=== PATIENT | female | born 1975 | race Caucasian/White ===

== ENCOUNTER 2017-10-02 17:53 | Emergency (ER) | payer OTHER ==
[~2017-10-02] VITALS: Ht 162.6 cm; Wt 68.0 kg
[~2017-10-02 17:53] MED LIST: ALIGN4 MG PO; AMITRIPTYLINE H25 M2 GT; ATIVAN1 MG PO; BACTRIM DS TAB1 EACH PO; BCP PO; BELLADONNA ALK/1 TA1; BENTYL 20 MG TA20 M1 PO; BENTYL20 MG PO; BIRTH CONTROL; BUSPAR30 MG PO; CELEXA 20 MG TA20 M1 PO; CELEXA20 MG PO; CELEXA40 MG PO; CIPRO500 MG PO; CIPROFLOXACIN500 M1 PO; CITRATE OF MAG296 ML PO; CLONAZEPAM 1 MG1 M1 PO; COLACE 100 MG100 MG PO; COLACE100 MG PO; DARVOCET-N 1001 EACH PO; DESYREL150 MG PO; DIFLUCAN150 MG PO; FLAGYL500 MG PO; HYDROCODON-ACE1 EACH PO; HYDROCODONE-AP1 EAC6 PO; HYDROXYZINE HCL25 M1; HYDROXYZINE HCL25 M1 PO; HYDROXYZINE HCL50 MG PO; HYOSCYAMINE0.15 M1 PO; IBUPROFEN 600600 M1 PO; IBUPROFEN 800800 M1 PO; KEFLEX500 MG PO; LINZESS145 MCG PO; LORTAB 5 MG/5001 TA1 PO; MACROBID 100 M100 M1 PO; MEDROL DOSPAK21 TAB PO; MIRALAX255 GM PO; NAPROSYN500 MG PO; NEURONTIN 300300 M1; NEXIUM40 MG; NORCO 10-325 T1 EACH PO; NORCO 5-325 TA1 EACH PO; NORCO 7.5-3251 EACH PO; ORTHO TRI-CYCL1 EACH; PENICILLIN VK500 MG PO; PHENERGAN 25 MG25 M1 PO; PREDNISONE50 MG PO; PREVACID 30MG C30 M1 PO; PYRIDIUM200 MG PO; TRAMADOL 50 MG50 MG PO; TRAZODONE 50 MG50 M1 OR; ULTRAM 50MG TAB50 MG PO; VICODIN 5-5001 EACH PO; VISTARIL 25 MG25 M1 PO; XANAX 0.25 MG0.25 MG PO; ZANTAC 150MG T150 M1 PO; ZANTAC 150MG T150 MG PO; ZEGERID 20 MG1 EACH PO; ZOFRAN 4 MG ORAL4 M1 DIS; ZOFRAN 4 MG ORAL4 MG PO; ZOFRAN ODT4 MG PO; ZOFRAN4 MG PO; ZYRTEC 10 MG TA10 M1 PO
[2017-10-02] MEDS ORDERED: REMERON15 MG PO (18:01)
[2017-10-02] MEDS ORDERED: MOBIC7.5 MG PO (18:51)
[2017-10-02 19:30] VITALS: BP 113/78
== END 2017-10-02 19:31 | disposition home or self-care (01) ==
LOC: ER 17:53
DX: M65.232 Calcific tendinitis, left forearm (principal); N80.9 Endometriosis, unspecified; F41.9 Anxiety disorder, unspecified; Z90.49 Acquired absence of other specified parts of digestive tract; Z88.5 Allergy status to narcotic agent; Z88.8 Allergy status to other drugs, medicaments and biological substances

== ENCOUNTER → 2019-01-21 | Outpatient (CLI) | payer BC ==
[~2019-01-21] MED LIST changes: +MOBIC7.5 MG PO; +REMERON15 MG PO
== END ==
LOC: CAT 14:37
DX: E27.8 Other specified disorders of adrenal gland (principal); N83.202 Unspecified ovarian cyst, left side; N83.201 Unspecified ovarian cyst, right side; N28.1 Cyst of kidney, acquired

== ENCOUNTER → 2019-03-07 | Outpatient (CLI) | payer BC | LOC: RAD 14:46 | DX: Z12.31 Encounter for screening mammogram for malignant neoplasm of breast (principal) ==